=== PATIENT | female | born 1995 | race African-American/Black ===

== ENCOUNTER 2017-02-24 19:25 | Emergency (ER) | payer OTHER | END 2017-02-24 22:17 | disposition home or self-care (01) | LOC: FER 19:25 | DX: S83.92XA Sprain of unspecified site of left knee, initial encounter (principal); Z88.0 Allergy status to penicillin; W19.XXXA Unspecified fall, initial encounter; Y92.009 Unspecified place in unspecified non-institutional (private) residence as the place of occurrence of the external cause | CPT/HCPCS: 73564; 99283 ==

== ENCOUNTER 2022-03-11 08:38 | Emergency (ER) | payer OTHER ==
[2022-03-11] MEDS ORDERED: AMOXICILLIN500 M1 PO (09:03)
[2022-03-11] MEDS ORDERED: CEPHALEXIN500 M1 PO (09:20)
== END 2022-03-11 09:09 | disposition home or self-care (01) ==
LOC: FER 08:38
DX: S40.262A Insect bite (nonvenomous) of left shoulder, initial encounter (principal); R03.0 Elevated blood-pressure reading, without diagnosis of hypertension; Z88.0 Allergy status to penicillin; W57.XXXA Bitten or stung by nonvenomous insect and other nonvenomous arthropods, initial encounter; Y92.009 Unspecified place in unspecified non-institutional (private) residence as the place of occurrence of the external cause
CPT/HCPCS: 99281